=== PATIENT | female | born 1955 | race Caucasian/White ===

== ENCOUNTER → 2016-10-09 | Outpatient (CLI) | payer BC | LOC: BMCIMAGING 13:37 | PROVIDERS: ATTEND Podiatrist Foot & Ankle Surgery | DX: Z03.89 Encounter for observation for other suspected diseases and conditions ruled out (principal) ==

== ENCOUNTER → 2016-10-18 | Outpatient (CLI) | payer BC | LOC: BMCIMAGING 10:13 | DX: Z12.31 Encounter for screening mammogram for malignant neoplasm of breast (principal) | CPT/HCPCS: G0202 ==

== ENCOUNTER → 2016-10-30 | Outpatient (CLI) | payer BC | LOC: BMCIMAGING 10:11 | PROVIDERS: ATTEND Podiatrist Foot & Ankle Surgery | DX: Z47.89 Encounter for other orthopedic aftercare (principal) ==

== ENCOUNTER → 2016-11-13 | Outpatient (CLI) | payer BC | LOC: BMCIMAGING 12:20 | PROVIDERS: ATTEND Family Medicine | DX: Z12.39 Encounter for other screening for malignant neoplasm of breast (principal); R92.2 Inconclusive mammogram | CPT/HCPCS: G0206 ==

== ENCOUNTER → 2017-10-07 | Outpatient (CLI) | payer BC | LOC: BMCIMAGING 13:21 | PROVIDERS: ATTEND Family Medicine | DX: Z13.820 Encounter for screening for osteoporosis (principal); M85.89 Other specified disorders of bone density and structure, multiple sites; N95.0 Postmenopausal bleeding; D25.1 Intramural leiomyoma of uterus; E07.9 Disorder of thyroid, unspecified; R93.8 Abnormal findings on diagnostic imaging of other specified body structures; Z78.0 Asymptomatic menopausal state; Z79.899 Other long term (current) drug therapy ==

== ENCOUNTER → 2018-01-09 | Outpatient (CLI) | payer BC | LOC: BMCIMAGING 13:08 | PROVIDERS: ATTEND Family Medicine | DX: Z12.31 Encounter for screening mammogram for malignant neoplasm of breast (principal) ==

== ENCOUNTER 2018-06-18 08:44 | Emergency (ER) | payer BC ==
[2018-06-18] MEDS ORDERED: TRANEXAMIC ACID 1,000 MG/10 ML VIAL ONE ×2 (09:02→09:15)
[2018-06-18] MEDS ORDERED: SILVER NITRATE APPLICATOR 1 APPL TP ONE (09:13)
--- NOTE | 2018-06-18 09:32 | EDPHY ---
H & P Stated Complaint: 1st epistaxis in 3 yrs. Started 1H LEGAL SUPPORT ASSISTANT. Denies trauma. No thinners Source: Patient Exam Limitations: No limitations - Personal History Current Tetanus/Diphtheria Vaccine: Unsure - Medical/Surgical History Hx Asthma: No Hx Chronic Respiratory Disease: No Hx Diabetes: No Hx Cardiac Disease: No Hx Renal Disease: No Hx Cirrhosis: No Hx Alcoholism: No Hx HIV/AIDS: No Hx Splenectomy or Spleen Trauma: No Other PMH: gerd/annamaria fundaplication, HTN - Social History Smoking Status: Never smoked Time Seen by Provider: 06/18/18 08:59 HPI/ROS: HPI: This is a 62-year-old female who presents with Chief Complaint: 1st epistaxis in 3 yrs. Started 1H LEGAL SUPPORT ASSISTANT. Denies trauma. No thinners Location: Nostril Quality: Bleeding Duration: 1 hr prior to arrival Signs and Symptoms: no fever, no nausea, no vomiting, no photophobia, no noise sensitivity, no neck stiffness, no ear pain, no tinnitus, no nasal congestion, no sinus pressure, no weakness, no radiation, no aura Timing: Acute Severity: Moderate Context: Patient reports that she woke up this morning and blew her nose with sudden onset of bleeding from her nostrils. She is unsure if it is from 1 or both nostrils. She reports that she has has a humidifier in the house but feels like her nostrils are dry. She reports she had a similar occurrence 3 years ago that required cauterization in the emergency room. She never followed up with ENT. She does not take any blood thinners. Modifying Factors: None Comment: ROS: A comprehensive 10 system review of systems is otherwise negative aside from elements mentioned in the history of present illness. MEDICAL/SURGICAL/SOCIAL HISTORY: Medical history: GERD, hypertension. Surgical history: Annamaria fundoplication Social history: Never smoked. Family history noncontributory. CONSTITUTIONAL: Anxious, elderly, pale white female. awake and alert, no obvious distress HEENT: Atraumatic and normocephalic, PERRL, EOMI. Nares patent; anterior epistaxis at the 3 o'clock position identified in the left nostril; bleeding into the posterior pharynx noted. Small oozing of bright red blood from the right nostril noted-unable to identify bleeding site. Tympanic membranes clear. Oropharynx clear, no exudate and moist pink mucosa. Airway patent. No lymphadenopathy. No meningismus. Cardiovascular: Normal S1/S2, regular rate, regular rhythm, without murmur rub or gallop. PULMONARY/CHEST: Symmetrical and nontender. Clear to auscultation bilaterally. Good air movement. No accessory muscle usage. ABDOMEN: Soft, nondistended, nontender, no rebound, no guarding, no peritoneal signs, no masses or organomegaly. No CVAT. EXTREMITIES: 2/2 pulses, strength 5/5, no deformities, no clubbing, no cyanosis or edema. NEUROLOGICAL: no focal neuro deficits. GCS 15. SKIN: Warm and dry, no erythema. no rash. Good capillary refill. (Romana Barron) Constitutional: Initial Vital Signs Temperature (C) 36.5 C 06/18/18 08:53 Heart Rate 86 06/18/18 08:53 Respiratory Rate 18 06/18/18 08:53 Blood Pressure 112/90 H 06/18/18 08:53 O2 Sat (%) 96 06/18/18 08:53 O2 Delivery Mode Room Air Allergies/Adverse Reactions: codeine [Codeine] Allergy (Unknown, Verified 06/18/18 08:51) Unknown metaxalone [From Skelaxin] Allergy (Unknown, Verified 06/18/18 08:51) Unknown morphine Allergy (Unknown, Verified 06/18/18 08:51) Unknown narcotics Allergy (Mild, Uncoded 07/03/14 17:15) Home Medications: Medication Instructions Recorded Cyclobenzaprine [Flexeril] 10 mg PO AD PRN 08/25/11 ESCITALOPRAM OXALATE [Lexapro] 20 mg PO DAILY 08/25/11 Estradiol [ESTRADIOL] 0.5 mg PO DAILY 08/25/11 HYDROcodone/ACETAMINOPHEN [Lortab 1 tab PO AD PRN 08/25/11 5/500] LEVOTHYROXINE SODIUM 25 mcg PO DAILY 08/25/11 Ondansetron Odt [Zofran Odt] 4 mg PO Q4PRN PRN 08/25/11 Prometrium AD 08/25/11 Protonix 07/03/14 HCTZ (*) 06/18/18 Medical Decision Making Procedures: Procedure: Epistaxis control. After verbal consent was obtained, the patient was anesthetized with 1% lidocaine with epinephrine. The left anterior epistaxis was identified. The patient was treated with silver nitrate x 2. Nasal packing soaked in TXA placed into both nostrils. Following the procedure the patient was re-examined and the bleeding was well controlled. The patient tolerated the procedure well. The procedure was performed by myself. (Romana Barron) ED Course/Re-evaluation: Vital signs reviewed and show blood pressure is stable. IV access and laboratory studies obtain, placed on systems administration analyst and given 1 L normal saline as patient was feeling faint. Initial blood pressure was systolic in the 60s; after 10 min her systolic was 110. Left nostril anterior epistaxis cauterized with silver nitrate. Patient has a very small nostrils; nasal packing placed in both nostrils with application of TXA. Laboratory studies reviewed and H&H 13.5040.8, platelet 403 and normal coags. 1100: Repeat vital signs stable. Road test performed and passed. Monitored in the emergency room for 3.5 hr with resolution of bleeding. Advised to follow up with ENT. Written and verbal instructions provided to patient and . This patient was seen under the supervision of my secondary supervising physician. I evaluated care for this patient independently. Discussed this patient with Dr. Alcala. (Romana Barron) Differential Diagnosis: Differential diagnosis includes but is not limited to digital manipulation dry nasal mucosa, coagulopathy, trauma, sinusitis. (Romana Barron) Other Provider: PHYSICIAN DOCUMENTATION: The patient was evaluated and managed by the Physician Conventions Reservationist. My co- signature indicates that I have reviewed this chart and I agree with the findings and plan of care as documented. I am the secondary supervising physician. (Michael Alcala) - Data Points Laboratory Results: Laboratory Results 06/18/18 09:50 06/18/18 06/18/18 09:55 09:50 WBC 7.24 10^3/uL 10^3/uL (3.80-9.50) RBC 4.47 10^6/uL 10^6/uL (4.18-5.33) Hgb 13.5 g/dL g/dL (12.6-16.3) Hct 40.6 % % (38.0-47.0) MCV 90.8 fL fL (81.5-99.8) MCH 30.2 pg pg (27.9-34.1) MCHC 33.3 g/dL g/dL (32.4-36.7) RDW 12.8 % % (11.5-15.2) Plt Count 403 10^3/uL H 10^3/uL (150-400) MPV 9.2 fL fL (8.7-11.7) Neut % (Auto) 45.4 % % (39.3-74.2) Lymph % (Auto) 43.0 % % (15.0-45.0) [place] % (Auto) 6.1 % % (4.5-13.0) Eos % (Auto) 4.4 % % (0.6-7.6) Baso % (Auto) 1.0 % % (0.3-1.7) Nucleat RBC Rel Count 0.0 % % (0.0-0.2) Absolute Neuts (auto) 3.29 10^3/uL 10^3/uL (1.70-6.50) Absolute Lymphs (auto) 3.11 10^3/uL H 10^3/uL (1.00-3.00) Absolute Monos (auto) 0.44 10^3/uL 10^3/uL (0.30-0.80) Absolute Eos (auto) 0.32 10^3/uL 10^3/uL (0.03-0.40) Absolute Basos (auto) 0.07 10^3/uL 10^3/uL (0.02-0.10) Absolute Nucleated RBC 0.00 10^3/uL 10^3/uL (0-0.01) Immature Gran % 0.1 % % (0.0-1.1) Immature Gran # 0.01 10^3/uL 10^3/uL (0.00-0.10) PT 13.2 SEC SEC (12.0-15.0) INR 0.98 (0.83-1.16) APTT 26.9 SEC SEC (23.0-38.0) Medications Given: Discontinued Medications Sodium Chloride (Ns) 1,000 mls @ 0 mls/hr IV EDNOW ONE; Wide Open PRN Reason: Protocol Stop: 06/18/18 09:44 Last Admin: 06/18/18 09:58 Dose: 1,000 mls Departure - Departure Disposition: Home, Routine, Self-Care Clinical Impression: Acute anterior epistaxis Condition: Good Instructions: Nosebleed (ED) Additional Instructions: Please do not pick your nose or blow your nose for the next 3 days. Please rest as much as possible and avoid moderate to strenuous activity or bending over which can raise your blood pressure and increase your risk of nose bleeds. You may remove the nose clamp this evening at bedtime. Leave packing in place until seen by ENT in the next 1-2 days. Please call ENT office today to get an appointment or Saturday for close follow-up. Follow-Up: Please follow-up as noted above. Follow-up sooner if your condition worsens or if you develop any new problems. Call as soon as possible for an appointment. Be clear when you call for an appointment that this is an Emergency Department follow-up. Contact the Emergency Department if you have trouble arranging follow-up care. Our referrals are not based on your insurance network. When time allows, contact your insurance carrier to verify the referral physician is in your plan. If not, get a referral for an in-network security architect. Referrals: Kina Young MD [Primary Care Provider] - As per Instructions Allison Gould MD [Medical Doctor] - As per Instructions
[2018-06-18] MEDS ORDERED: NS 1,000 ML IV ONE (09:43)
[2018-06-18 09:54] LABS: PLATELET COUNT 403 10^3/uL (150-400)
[2018-06-18 10:10] LABS: INR 0.98 (0.83-1.16); PROTIME(PATIENT) 13.2 SEC (12.0-15.0)
[2018-06-18 11:02] VITALS: BP 133/81
== END 2018-06-18 11:40 | disposition home or self-care (01) ==
PROC: 095K3ZZ Destruction of Nasal Mucosa and Soft Tissue, Percutaneous Approach (ICD-10-PCS; principal; 2018-06-18)
DX: R04.0 Epistaxis (principal); E86.9 Volume depletion, unspecified